=== PATIENT | male | born 1985 | race Caucasian/White ===

== ENCOUNTER 2019-08-11 10:37 | Inpatient (IN) | payer OTHER ==
[~2019-08-11] VITALS: Ht 165.1 cm; Wt 72.7 kg
[2019-08-11] MEDS ORDERED: MAGNESIUM SULFATE 2 GM, MVI, ADULT NO.1 WITH VIT K 10 ML, THIAMINE HCL 100 MG, FOLIC AC... IV ONE ×5 (11:30)
[2019-08-11 12:23] LABS: BASOPHILS % (AUTO) 0.7 % (0.0-2.0); EOSINOPHILS % (AUTO) 0.2 % (1.0-6.0); HEMATOCRIT 48.2 % (41-53); HEMOGLOBIN 16.6 g/dL (13.5-17.5); LYMPHOCYTES # (AUTO) 0.9 K/uL (1.0-4.8); LYMPHOCYTES % (AUTO) 14.7 % (22.0-44.0); MEAN CORPUSCULAR HEMOGLOBIN 31.8 pg (26.0-34.0); MEAN CORPUSCULAR HGB CONC 34.5 G/dL (31.0-37.0); MEAN CORPUSCULAR VOLUME 92 fL (80-100); MONOCYTES # (AUTO) 0.6 K/uL (0.1-1.0); MONOCYTES % (AUTO) 9.6 % (2.0-9.0); NEUTROPHILS # (AUTO) 4.7 K/uL (1.8-7.7); NEUTROPHILS % (AUTO) 74.8 % (40.0-70.0); PLATELET COUNT (AUTO) 305 K/uL (150-450); RED BLOOD CELL COUNT(AUTO) 5.23 MIL/uL (4.50-5.90); RED CELL DISTRIBUTION WIDTH 13.5 % (11.5-14.5)
[2019-08-11 12:27] LABS: ANION GAP 12 mmol/L (8-16); CALCIUM, TOTAL 9.1 mg/dL (8.8-10.5); CARBON DIOXIDE 25 mmol/L (22-29); CHLORIDE 101 mmol/L (98-107); CREATININE 1.04 mg/dL (0.60-1.30); GLOMERULAR FILTR. RATE CALC > 60 mL/min (>60); GLUCOSE,RANDOM 122 mg/dL (70-110); POTASSIUM 3.1 mmol/L (3.5-5.1); SODIUM SERUM 138 mmol/L (136-145); UREA NITROGEN, BLOOD 4 mg/dL (7-18)
[2019-08-11] MEDS ORDERED: LORazepam 1 MG TABLET PO ONE (12:30)
[2019-08-11 12:33] LABS: ALANINE AMINOTRANSFERASE 90 U/L (12-78); ALBUMIN 4.4 g/dL (3.4-5.0); ALKALINE PHOSPHATASE 134 U/L (46-116); ASPARTATE AMINOTRANSFERASE 91 U/L (15-37); BILIRUBIN,TOTAL 0.9 mg/dL (0.1-1.0); TOTAL PROTEIN, SERUM 8.1 g/dL (6.4-8.2)
[2019-08-11] MEDS ORDERED: POTASSIUM CHLORIDE 20 MEQ ER TABLET PO ONE (12:45)
[2019-08-11 13:48] VITALS: BP 150/94
[2019-08-11 16:20] VITALS: BP 147/90
[2019-08-11 16:33] LABS: AMPHET/METH SCREEN,URINE NEGATIVE (NEGATIVE); BARBITURATE SCREEN, URINE NEGATIVE (NEGATIVE); BENZODIAZEPINES SCREEN,URINE NEGATIVE (NEGATIVE); CANNABINOID SCREEN,URINE POSITIVE (NEGATIVE); COCAINE SCREEN,URINE NEGATIVE (NEGATIVE); METHADONE SCREEN, URINE NEGATIVE (NEGATIVE); OPIATE SCREEN,URINE NEGATIVE (NEGATIVE)
[2019-08-11 16:38] LABS: PHENCYCLIDINE SCREEN,URINE NEGATIVE (NEGATIVE)
[2019-08-11 19:20] VITALS: BP 149/87
[2019-08-11] MEDS ORDERED: IPRATROPIUM BROMIDE 0.5 MG/2.5 ML NEB SOLUTION NEB PRN (20:15)
[2019-08-11] MEDS ORDERED: ZOLPIDEM TARTRATE 5 MG TABLET PO PRN (20:15)
[2019-08-11] MEDS ORDERED: BISACODYL 10 MG RECTAL RECTAL SUPPOSITORY PR PRN (20:15)
[2019-08-11] MEDS ORDERED: MAGNESIUM HYDROXIDE SUSPENSION 30 ML UDCUP PO PRN (20:15)
[2019-08-11] MEDS ORDERED: ALBUTEROL SULFATE 2.5 MG/0.5 ML NEB SOLUTION NEB PRN (20:15)
[2019-08-11] MEDS ORDERED: LORazepam 2 MG/ML VIAL IVP PRN (20:15)
[2019-08-11] MEDS: ONDANSETRON HCL 4 MG/2 ML VIAL IVP PRN (20:35)
[2019-08-11] MEDS: SODIUM CHLORIDE 0.45% 1,000 ML IV SCH (20:38)
[2019-08-11] MEDS: DOCUSATE SODIUM 100 MG CAPSULE PO SCH (21:24)
[2019-08-11] MEDS: ACETAMINOPHEN 325 MG TABLET PO PRN (21:24)
[2019-08-12 00:22] VITALS: BP 151/91
[2019-08-12] MEDS: ChlordiazePOXIDE HCL 25 MG CAPSULE PO SCH ×5 (00:32→23:46)
[2019-08-12] MEDS: HEPARIN SODIUM,PORCINE 5,000 UNITS/ML VIAL SQ SCH ×4 (00:39→23:46)
[2019-08-12 04:51] VITALS: BP 156/84
[2019-08-12] MEDS: ACETAMINOPHEN 325 MG TABLET PO PRN ×2 (05:56→20:19)
[2019-08-12 07:10] LABS: BASOPHILS % (AUTO) 0.4 % (0.0-2.0); EOSINOPHILS % (AUTO) 0.1 % (1.0-6.0); HEMATOCRIT 45.2 % (41-53); HEMOGLOBIN 15.6 g/dL (13.5-17.5); LYMPHOCYTES # (AUTO) 0.7 K/uL (1.0-4.8); LYMPHOCYTES % (AUTO) 10.6 % (22.0-44.0); MEAN CORPUSCULAR HEMOGLOBIN 31.9 pg (26.0-34.0); MEAN CORPUSCULAR HGB CONC 34.4 G/dL (31.0-37.0); MEAN CORPUSCULAR VOLUME 93 fL (80-100); MONOCYTES # (AUTO) 0.8 K/uL (0.1-1.0); NEUTROPHILS # (AUTO) 5.1 K/uL (1.8-7.7); NEUTROPHILS % (AUTO) 76.9 % (40.0-70.0); PLATELET COUNT (AUTO) 201 K/uL (150-450); RED BLOOD CELL COUNT(AUTO) 4.88 MIL/uL (4.50-5.90); RED CELL DISTRIBUTION WIDTH 13.2 % (11.5-14.5)
[2019-08-12 07:22] LABS: INR 0.9 (0.9-1.1); PROTHROMBIN TIME 9.8 SEC (9.4-11.6)
[2019-08-12 07:27] LABS: ALBUMIN 3.7 g/dL (3.4-5.0); BILIRUBIN,TOTAL 2.2 mg/dL (0.1-1.0); CREATININE 2.86 mg/dL (0.60-1.30); POTASSIUM 3.4 mmol/L (3.5-5.1); TOTAL PROTEIN, SERUM 6.9 g/dL (6.4-8.2)
[2019-08-12 08:01] VITALS: BP 157/88
[2019-08-12] MEDS: THIAMINE HCL 100 MG TABLET PO SCH (08:54)
[2019-08-12] MEDS: DOCUSATE SODIUM 100 MG CAPSULE PO SCH ×2 (08:54→20:19)
[2019-08-12] MEDS: FOLIC ACID 1 MG TABLET PO SCH (08:54)
[2019-08-12] MEDS: MULTIVITAMINS, THERAPEUTIC TABLET PO SCH (08:54)
[2019-08-12] MEDS: SODIUM CHLORIDE 0.45% 1,000 ML IV SCH ×2 (08:54→11:26)
[2019-08-12 11:28] VITALS: BP 155/85
[2019-08-12] MEDS: SODIUM CHLORIDE 0.9% 1,000 ML IV SCH ×2 (13:30→23:46)
[2019-08-12 16:18] VITALS: BP 146/93
[2019-08-12 16:41] LABS: CREATININE 3.53 mg/dL (0.60-1.30); POTASSIUM 3.8 mmol/L (3.5-5.1)
[2019-08-12 20:09] VITALS: BP 152/96
[2019-08-13] VITALS (7 sets, daily range): BP systolic 133–155; BP diastolic 75–103
[2019-08-13] MEDS: ONDANSETRON HCL 4 MG/2 ML VIAL IVP PRN (02:25)
[2019-08-13] MEDS: ChlordiazePOXIDE HCL 25 MG CAPSULE PO SCH ×4 (05:56→23:24)
[2019-08-13 07:01] LABS: BASOPHILS % (AUTO) 0.4 % (0.0-2.0); EOSINOPHILS % (AUTO) 0.2 % (1.0-6.0); HEMATOCRIT 41.3 % (41-53); HEMOGLOBIN 14.3 g/dL (13.5-17.5); LYMPHOCYTES % (AUTO) 13.4 % (22.0-44.0); MEAN CORPUSCULAR HEMOGLOBIN 32.3 pg (26.0-34.0); MEAN CORPUSCULAR HGB CONC 34.7 G/dL (31.0-37.0); MEAN CORPUSCULAR VOLUME 93 fL (80-100); MONOCYTES # (AUTO) 0.6 K/uL (0.1-1.0); MONOCYTES % (AUTO) 7.9 % (2.0-9.0); NEUTROPHILS # (AUTO) 5.9 K/uL (1.8-7.7); NEUTROPHILS % (AUTO) 78.1 % (40.0-70.0); PLATELET COUNT (AUTO) 192 K/uL (150-450); RED BLOOD CELL COUNT(AUTO) 4.43 MIL/uL (4.50-5.90); RED CELL DISTRIBUTION WIDTH 13.6 % (11.5-14.5)
[2019-08-13 07:16] LABS: ALBUMIN 3.1 g/dL (3.4-5.0); BILIRUBIN,TOTAL 1.2 mg/dL (0.1-1.0); CALCIUM, TOTAL 8.5 mg/dL (8.8-10.5); CREATININE 3.41 mg/dL (0.60-1.30); POTASSIUM 3.9 mmol/L (3.5-5.1); TOTAL PROTEIN, SERUM 6.2 g/dL (6.4-8.2)
[2019-08-13] MEDS: FOLIC ACID 1 MG TABLET PO SCH (08:28)
[2019-08-13] MEDS: HEPARIN SODIUM,PORCINE 5,000 UNITS/ML VIAL SQ SCH ×3 (08:28→23:25)
[2019-08-13] MEDS: DOCUSATE SODIUM 100 MG CAPSULE PO SCH ×2 (08:28→20:07)
[2019-08-13] MEDS: MULTIVITAMINS, THERAPEUTIC TABLET PO SCH (08:28)
[2019-08-13] MEDS: THIAMINE HCL 100 MG TABLET PO SCH (10:12)
[2019-08-13] MEDS: SODIUM CHLORIDE 0.9% 1,000 ML IV SCH ×2 (10:12→20:07)
[2019-08-13] MEDS: LABETALOL HCL 100 MG TABLET PO SCH ×2 (17:14→23:24)
[2019-08-13 18:20] LABS: CREATININE,URINE RANDOM 35.8 mg/dL (30.0-125.0); SODIUM,URINE RANDOM 52 mmol/l (20-110)
[2019-08-13 18:38] LABS: PROTEIN,URINE RANDOM < 6 mg/dL (0-11.9)
[2019-08-14 04:00] VITALS: BP 147/89
[2019-08-14] MEDS: SODIUM CHLORIDE 0.9% 1,000 ML IV SCH (06:30)
[2019-08-14] MEDS: LABETALOL HCL 100 MG TABLET PO SCH ×4 (06:31→23:24)
[2019-08-14] MEDS: ChlordiazePOXIDE HCL 25 MG CAPSULE PO SCH ×4 (06:31→23:24)
[2019-08-14 07:05] LABS: BASOPHILS % (AUTO) 0.4 % (0.0-2.0); EOSINOPHILS % (AUTO) 0.4 % (1.0-6.0); HEMATOCRIT 39.4 % (41-53); HEMOGLOBIN 13.4 g/dL (13.5-17.5); LYMPHOCYTES # (AUTO) 0.9 K/uL (1.0-4.8); LYMPHOCYTES % (AUTO) 15.5 % (22.0-44.0); MEAN CORPUSCULAR HEMOGLOBIN 31.8 pg (26.0-34.0); MEAN CORPUSCULAR VOLUME 94 fL (80-100); MONOCYTES # (AUTO) 0.5 K/uL (0.1-1.0); MONOCYTES % (AUTO) 7.7 % (2.0-9.0); NEUTROPHILS # (AUTO) 4.5 K/uL (1.8-7.7); PLATELET COUNT (AUTO) 191 K/uL (150-450); RED BLOOD CELL COUNT(AUTO) 4.22 MIL/uL (4.50-5.90); RED CELL DISTRIBUTION WIDTH 13.2 % (11.5-14.5)
[2019-08-14 07:41] LABS: CALCIUM, TOTAL 8.6 mg/dL (8.8-10.5); CREATININE 2.53 mg/dL (0.60-1.30)
[2019-08-14] MEDS: MULTIVITAMINS, THERAPEUTIC TABLET PO SCH (08:20)
[2019-08-14] MEDS: DOCUSATE SODIUM 100 MG CAPSULE PO SCH ×2 (08:20→19:09)
[2019-08-14] MEDS: HEPARIN SODIUM,PORCINE 5,000 UNITS/ML VIAL SQ SCH ×3 (08:20→23:24)
[2019-08-14] MEDS: FOLIC ACID 1 MG TABLET PO SCH (08:20)
[2019-08-14] MEDS: THIAMINE HCL 100 MG TABLET PO SCH (08:20)
[2019-08-14 08:31] VITALS: BP 140/90
[2019-08-14 11:32] VITALS: BP 156/86
[2019-08-14 15:26] VITALS: BP 146/73
[2019-08-14 19:25] VITALS: BP 157/98
[2019-08-14 23:25] VITALS: BP 159/89
[2019-08-15 04:45] VITALS: BP 142/79
[2019-08-15] MEDS: ChlordiazePOXIDE HCL 25 MG CAPSULE PO SCH (06:26)
[2019-08-15] MEDS: LABETALOL HCL 100 MG TABLET PO SCH (06:26)
[2019-08-15 07:25] VITALS: BP 132/87
[2019-08-15 08:10] LABS: BASOPHILS % (AUTO) 0.5 % (0.0-2.0); EOSINOPHILS % (AUTO) 1.1 % (1.0-6.0); HEMATOCRIT 43.8 % (41-53); HEMOGLOBIN 14.7 g/dL (13.5-17.5); LYMPHOCYTES # (AUTO) 1.3 K/uL (1.0-4.8); LYMPHOCYTES % (AUTO) 22.9 % (22.0-44.0); MEAN CORPUSCULAR HEMOGLOBIN 31.5 pg (26.0-34.0); MEAN CORPUSCULAR HGB CONC 33.6 G/dL (31.0-37.0); MEAN CORPUSCULAR VOLUME 94 fL (80-100); MONOCYTES # (AUTO) 0.4 K/uL (0.1-1.0); MONOCYTES % (AUTO) 7.6 % (2.0-9.0); NEUTROPHILS # (AUTO) 3.7 K/uL (1.8-7.7); NEUTROPHILS % (AUTO) 67.9 % (40.0-70.0); PLATELET COUNT (AUTO) 264 K/uL (150-450); RED BLOOD CELL COUNT(AUTO) 4.68 MIL/uL (4.50-5.90); RED CELL DISTRIBUTION WIDTH 13.7 % (11.5-14.5)
[2019-08-15 08:22] LABS: CALCIUM, TOTAL 9.5 mg/dL (8.8-10.5); CREATININE 1.98 mg/dL (0.60-1.30); POTASSIUM 4.1 mmol/L (3.5-5.1)
[2019-08-15] MEDS ORDERED: AmLODIPine BESYLATE 5 MG TABLET PO SCH (09:30)
[2019-08-15] MEDS: FOLIC ACID 1 MG TABLET PO SCH (09:41)
[2019-08-15] MEDS: THIAMINE HCL 100 MG TABLET PO SCH (09:41)
[2019-08-15] MEDS: HEPARIN SODIUM,PORCINE 5,000 UNITS/ML VIAL SQ SCH (09:41)
[2019-08-15] MEDS: MULTIVITAMINS, THERAPEUTIC TABLET PO SCH (09:41)
[2019-08-15] MEDS: DOCUSATE SODIUM 100 MG CAPSULE PO SCH (09:41)
[2019-08-15 11:10] VITALS: BP 142/92
[2019-08-15] MEDS ORDERED: AMLO5TAB9 PO (12:50)
[2019-08-15] MEDS ORDERED: LIB25 PO (12:51)
== END 2019-08-15 14:00 | DRG 641 ==
LOC: EMS 10:38 → 6S 12:40
PROVIDERS: ADMIT Internal Medicine; ATTEND Internal Medicine
DX: E87.6 Hypokalemia (principal); N17.9 Acute kidney failure, unspecified; F10.129 Alcohol abuse with intoxication, unspecified; Z72.0 Tobacco use; F12.90 Cannabis use, unspecified, uncomplicated; F15.10 Other stimulant abuse, uncomplicated; I10 Essential (primary) hypertension; Z63.8 Other specified problems related to primary support group
CPT/HCPCS: 76700; 76770; 82570; 83874; 84156; 84300; G0480; J1644; J2405; J3411; J3475; J3490; J7030